=== PATIENT | male | born 1985 | race American Indian/Alaskan Native ===

== ENCOUNTER 2021-08-22 22:22 | Observation (INO) | payer SELFPAY ==
[2021-08-22] MEDS ORDERED: MORPHINE 4 MG/1 ML INJ IV ONE (23:00)
--- NOTE | 2021-08-22 23:13 | Emergency Department Report ---
ED General Adult HPI - General Chief complaint: High BP Stated complaint: HYPERTENSIVE CRISIS Source: EMS Mode of arrival: Wheelchair Limitations: No Limitations - History of Present Illness Initial comments: Patient is a 36-year-old male here with complaint of elevated blood pressures. Patient also reports that he has pain in his joints. Of note patient was unfortunately arrested on Wednesday and has been time in the retirement he states in an uncomfortable position. He was diagnosed with hypertension about 2 days ago and on today had blood pressures that were above 270 systolic. Patient was given doses of amlodipine, clonidine which did not improve his blood pressure so he w as transferred here for further evaluation. 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 He reports that he has had radiation and chemotherapy as well as some lymph nodes removed on the left. Secondary to this patient developed lymphedema of the left arm as well as left breast. He has pain tenderness and redness to the left breast although he denies any recent fevers chills or cough. He does not have any severe headache, no severe chest pain or abdominal pain. - Related Data Allergies Allergy/AdvReac Type Severity Reaction Status Date / Time No Known Allergies Allergy Verified 08/22/21 22:28 ED Review of Systems ROS: Stated complaint: HYPERTENSIVE CRISIS Other details as noted in HPI Constitutional: denies: chills, fever Eyes: denies: eye pain ENT: denies: throat pain Respiratory: denies: cough Cardiovascular: denies: chest pain Endocrine: no symptoms reported Gastrointestinal: denies: abdominal pain, nausea, vomiting Genitourinary: denies: urgency, dysuria Musculoskeletal: back pain Skin: denies: rash Neurological: denies: headache Psychiatric: denies: anxiety, depression Hematological/Lymphatic: denies: easy bleeding ED Past Medical Hx - Past Medical History Previous Medical History?: Yes Hx Hypertension: Yes Hx of Cancer: Yes (Squarmacell neoblastoma) ED Physical Exam - General Limitations: No Limitations General appearance: alert, in no apparent distress - Head Head exam: Present: atraumatic, other (Swelling noted to the face) - Eye Eye exam: Present: periorbital swelling Pupils: Present: normal accommodation - ENT ENT exam: Present: normal exam - Neck Neck exam: Present: normal inspection - Respiratory Respiratory exam: Present: normal lung sounds bilaterally. Absent: respiratory distress - Cardiovascular Cardiovascular Exam: Present: regular rate, normal rhythm. Absent: systolic murmur, diastolic murmur, rubs, gallop - GI/Abdominal GI/Abdominal exam: Present: soft, normal bowel sounds - Rectal Rectal exam: Present: deferred - exam: Present: normal inspection - Extremities Exam Extremities exam: Present: normal inspection - Back Exam Back exam: Present: paraspinal tenderness (At the thoracic spine on the right) - Neurological Exam Neurological exam: Present: alert, oriented X3 - Psychiatric Psychiatric exam: Present: normal affect, normal mood - Skin Skin exam: Present: warm, dry, intact, normal color. Absent: rash ED Course Vital Signs 08/22/21 08/22/21 08/22/21 22:28 22:34 22:40 Temperature 98.9 F Pulse Rate 75 97 H 95 H Respiratory 18 17 14 Rate Blood Pressure 175/125 Blood Pressure 278/177 [Left] O2 Sat by Pulse 100 98 100 Oximetry 08/22/21 08/22/21 08/22/21 22:50 23:00 23:10 Temperature Pulse Rate 109 H Respiratory 20 14 Rate Blood Pressure 177/133 190/115 178/113 Blood Pressure [Left] O2 Sat by Pulse 100 100 100 Oximetry 08/22/21 08/22/21 08/22/21 23:20 23:30 23:35 Temperature Pulse Rate Respiratory 14 12 18 Rate Blood Pressure 168/121 180/109 Blood Pressure [Left] O2 Sat by Pulse 100 98 Oximetry 08/22/21 08/22/21 08/22/21 23:40 23:44 23:50 Temperature Pulse Rate Respiratory 15 14 12 Rate Blood Pressure 188/116 188/116 188/105 Blood Pressure [Left] O2 Sat by Pulse 100 95 100 Oximetry 08/22/21 08/23/21 08/23/21 23:58 00:00 00:16 Temperature Pulse Rate Respiratory 17 12 15 Rate Blood Pressure 188/105 172/111 188/105 Blood Pressure [Left] O2 Sat by Pulse 100 100 100 Oximetry 08/23/21 08/23/21 00:31 00:45 Temperature Pulse Rate Respiratory 14 15 Rate Blood Pressure 170/97 184/109 Blood Pressure [Left] O2 Sat by Pulse 100 99 Oximetry - Reevaluation(s) Reevaluation #1: 08/23/21 02:44 Patient has remained in the 180s systolic. Given patient's report of previous blood pressure in the 270s at this time I will not treat until blood pressure goes over 200. I did obtain CT of the chest to rule out aortic dissection which was negative. ED Medical Decision Making - Lab Data Result diagrams: 08/22/21 23:06 08/22/21 23:06 - EKG Data -: EKG Interpreted by Me EKG shows normal: sinus rhythm - EKG Data 08/22/21 23:12 PVC noted, rate 87 - Radiology Data Radiology results: report reviewed - Medical Decision Making Patient is a 36-year-old male here with complaint of high blood pressure. He also reports some mild right-sided back pain, body aches all over. On exam patient appears possibly fluid overloaded and I am concerned that his elevated blood pressures could have caused damage to his renal function. Patient also has evidence of possible cellulitis to the left breast. Plan for complete evaluation for hypertension including chest x-ray, EKG, basic labs. Will also obtain blood cultures lactic acid and give cefazolin for patient's likely cellulitis. At this time patient's blood pressure is 170 systolic and per reports patient's blood pressure prior to arrival was in the 270s. Given this we will see the trend of blood pressures before giving IV antihypertensive. Critical care attestation.: If time is entered above; I have spent that time in minutes in the direct care of this critically ill patient, excluding procedure time. ED Disposition Clinical Impression: Cellulitis, Hypertensive urgency Disposition: ADMITTED INPATIENT Is pt being admited?: Yes Does the pt Need Aspirin: No Condition: Stable Referrals: PRIMARY CARE, [Primary Care Provider] - 3-5 Days
--- NOTE | 2021-08-22 23:29 | XRay Report ---
CHEST 1 VIEW 08/22/2021 10:14 PM INDICATION / CLINICAL INFORMATION: Elevated blood pressure; eval for widened mediastinum. COMPARISON: None available. FINDINGS: There is mild patient motion. SUPPORT DEVICES: None. HEART / MEDIASTINUM: The heart size and pulmonary vasculature are normal. The aorta is normal in angelo thalia. There is no evidence of mediastinal widening. LUNGS / PLEURA: No significant pulmonary or pleural abnormality. No pneumothorax. ADDITIONAL FINDINGS: No significant additional findings. IMPRESSION: No acute findings. Signer Name: Johann Navarrete MD Signed: 08/22/2021 11:24 PM Workstation Name: [id number]
[2021-08-22 23:37] LABS: Basophils % (Auto) 0.2 % (0.0-1.8); Eosinophils # (Auto) 0.1 K/mm3 (0.0-0.4); Eosinophils % (Auto) 1.1 % (0.0-4.3); Hematocrit 37.7 % (35.5-45.6); Hemoglobin 12.2 gm/dl (11.8-15.2); Lymphocytes # (Auto) 1.1 K/mm3 (1.2-5.4); Lymphocytes % (Auto) 13.3 % (13.4-35.0); Mean Corpuscular HGB Conc 32 % (32-34); Mean Corpuscular Volume 89 fl (84-94); Monocytes # (Auto) 0.6 K/mm3 (0.0-0.8); Monocytes % (Auto) 6.6 % (0.0-7.3); Platelet Count 264 K/mm3 (140-440); Red Blood Count 4.23 M/mm3 (3.65-5.03); Red Cell Distribution Width 14.3 % (13.2-15.2)
[2021-08-22 23:49] LABS: Alanine Aminotransferase 10 units/L (7-56); BUN/Creatinine Ratio 13; Blood Urea Nitrogen 14 mg/dL (9-20); Calcium 9.6 mg/dL (8.4-10.2); Hemolysis Index 0
[2021-08-23] MEDS ORDERED: MORPHINE 4 MG/1 ML INJ IV ONE (01:49)
--- NOTE | 2021-08-23 02:21 | Cat Scan Report ---
CTA CHEST WITH CONTRAST INDICATION / CLINICAL INFORMATION: Hypertensive urgency and back pain. TECHNIQUE: Axial CT images were obtained through the chest after injection of 70 cc Omnipaque 350 IV contrast. 3 plane MIP and/or 3D reconstructions were produced. All CT scans at this location are perf ormed using CT dose reduction for ALARA by means of automated exposure control. The technologist stat es that a significant amount of the contrast extravasated into the right upper extremity. The provide r was notified. COMPARISON: None available. FINDINGS: PULMONARY ARTERIES: Suboptimal opacification especially peripherally. No central filling defects are seen. THORACIC AORTA: No significant abnormality. HEART: No significant abnormality. CORONARY ARTERY CALCIFICATION: None. MEDIASTINUM / HARRISON: No significant abnormality. PLEURA: Minimal left pleural effusion. No pneumothorax. LUNGS: There is mild patchy groundglass parenchymal disease and poorly defined centrilobular nodulari ty in the right upper lobe, and to a lesser extent the left lower lobe and lingula. ADDITIONAL FINDINGS: There is enlargement and edema of the left chest wall including the left breast. UPPER ABDOMEN: There are several small simple cysts in the left kidney. SKELETAL STRUCTURES: No significant osseous abnormality. IMPRESSION: 1. Negative limited examination for acute PTE. No evidence of aortic dissection. 2. Patchy parenchymal disease in both lungs is probably inflammatory. Atypical causes of pneumonia sh ould be considered. Trace left pleural effusion. 3. Generalized left chest wall/breast edema. Signer Name: Johann Navarrete MD Signed: 08/23/2021 2:17 AM Workstation Name: [id number]
--- NOTE | 2021-08-23 02:55 | History and Physical Report ---
History of Present Illness Date of examination: 08/23/21 Date of admission: 08/23/21 Chief complaint: elevated blood pressure History of present illness: This is a 36-year-old male seen in ED at bedside. He came with complaint of elevated blood pressures. Patient also reports that he has pain in his joints. Patient reports he is longterm. Per ED note, patient was arrested on Wednesday and has been time in the longterm. He was diagnosed with hypertension about 2 days ago and on today had blood pressures that were above 270 systolic. Patient was given doses of amlodipine, clonidine which did not improve his blood pressure so he was transferred here for further evaluation. 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 He reports that he has had radiation and chemotherapy as well as some lymph nodes removed on the left. Secondary to this patient developed lymphedema of the left arm as well as left breast. Past History Past Medical History: cancer (nasal cancer) Past Surgical History: No surgical history Social history: smoking, full code. denies: alcohol abuse, prescription drug abuse, IV drug use Family history: no significant family history Medications and Allergies Allergies Allergy/AdvReac Type Severity Reaction Status Date / Time No Known Allergies Allergy Verified 08/22/21 22:28 Review of Systems Ears, nose, mouth and throat: no epistaxis, no bleeding gums Cardiovascular: high blood pressure Respiratory: no congestion Gastrointestinal: no vomiting, no melena Musculoskeletal: no hot joints Integumentary: other (left breast edema- lymphedema) Hematologic/Lymphatic: no easy bruising, no easy bleeding Allergic/Immunologic: no urticaria Exam - Constitutional Vitals: Temp Pulse Resp BP Pulse Ox 98.9 F 109 H 15 157/106 100 08/22/21 22:28 08/22/21 22:50 08/23/21 00:45 08/23/21 02:46 08/23/21 02:46 General appearance: Present: mild distress, obese - EENT Eyes: Present: PERRL ENT: hearing intact, clear oral mucosa - Neck Neck: Present: supple, normal ROM - Respiratory Respiratory effort: normal Respiratory: bilateral: CTA - Cardiovascular Heart Sounds: Present: S1 & S2. Absent: rub, click - Extremities Extremities: pulses symmetrical, No edema Peripheral Pulses: within normal limits - Abdominal General gastrointestinal: Present: soft, non-tender, non-distended, normal bowel sounds Male genitourinary: Present: normal - Integumentary Integumentary: Present: clear, warm, dry - Musculoskeletal Musculoskeletal: strength equal bilaterally, other (edema left breast) - Psychiatric Psychiatric: appropriate mood/affect, intact judgment & insight - Neurologic Neurologic: CNII-XII intact, moves all extremities - Allied Health Allied health notes reviewed: nursing HEART Score - HEART Score Troponin: Troponin T < 0.010 ng/mL (0.00-0.029) 08/22/21 23:06 Results - Labs CBC & Chem 7: 08/22/21 23:06 08/22/21 23:06 Labs: Abnormal lab results 08/22/21 08/22/21 Range/Units 23:06 23:17 Lymph % (Auto) 13.3 L (13.4-35.0) % Lymph # (Auto) 1.1 L (1.2-5.4) K/mm3 Seg Neutrophils % 78.8 H (40.0-70.0) % Magnesium 1.50 L (1.7-2.3) mg/dL Assessment and Plan - Patient Problems (1) Hypertensive urgency Status: Acute Plan to address problem: monitor blood pressure BP has improved-on antihypertensive PRN hydration (2) Cellulitis Status: Acute Plan to address problem: Left breast swelling patient reports he has ongoing lymphedema of left breast patient started on abx (3) Hypomagnesemia Status: Acute Plan to address problem: replace magnesium Monitor electrolyte-replace PRN (4) Pneumonia Status: Acute Plan to address problem: Start empiric abx therapy (5) Obesity (BMI 30-39.9) Status: Acute Plan to address problem: Discussed lifestyle modification Discussed healthy diet and weight management (6) DVT prophylaxis Status: Acute Plan to address problem: Lovenox
[2021-08-23] MEDS ORDERED: MAGNESIUM SULFATE 4 GM/100 ML BAG IV ONE (02:58)
[2021-08-23] MEDS ORDERED: MAGNESIUM HYDROXIDE (MOM) ORAL LIQD UDC PO PRN (02:59)
[2021-08-23] MEDS ORDERED: IBUPROFEN 600 MG TAB PO PRN (02:59)
[2021-08-23] MEDS ORDERED: MORPHINE 2 MG/1 ML INJ IV PRN (02:59)
[2021-08-23] MEDS ORDERED: oxyCODONE /ACETAMINOPHEN 5-325MG TAB PO PRN (02:59)
[2021-08-23] MEDS ORDERED: NALOXONE 0.4 MG/1 ML INJ IV PRN (02:59)
[2021-08-23] MEDS ORDERED: MORPHINE 4 MG/1 ML INJ IV PRN (02:59)
[2021-08-23] MEDS ORDERED: SENNOSIDES 8.6 MG TAB PO PRN (02:59)
[2021-08-23] MEDS ORDERED: ALUM-MAG HYDROXIDE-SIMETHICONE 200-200-20MG/5ML ORAL LIQD 30 ML PO PRN (02:59)
[2021-08-23] MEDS ORDERED: ACETAMINOPHEN 325 MG TAB PO PRN (02:59)
[2021-08-23] MEDS ORDERED: ONDANSETRON 4 MG/2 ML INJ IV PRN (02:59)
[2021-08-23 03:50] VITALS: BP 166/108
[2021-08-23] MEDS ORDERED: cefTRIAXone/NS 2 GM/100 ML 2 GM/100 ML BAG IV SCH (06:00)
[2021-08-23] MEDS ORDERED: AZITHROMYCIN/NS 500 MG/250 ML 500 MG/250 ML BAG IV SCH (08:00)
[2021-08-23] MEDS ORDERED: FAMOTIDINE 20 MG/2 ML INJ IV SCH (10:00)
[2021-08-23] MEDS ORDERED: ENOXAPARIN 40 MG/0.4 ML INJ SUB-Q SCH (10:00)
== END 2021-08-23 04:48 | disposition left against medical advice (07) ==
LOC: ED 22:22 → EEVIPCON 22:22 → 3A 08-23 02:59
PROVIDERS: ADMIT Internal Medicine Geriatric Medicine; ATTEND Internal Medicine Geriatric Medicine
DX: I16.0 Hypertensive urgency (principal); N61.0 Mastitis without abscess; E83.42 Hypomagnesemia; J18.9 Pneumonia, unspecified organism; E66.9 Obesity, unspecified; F17.210 Nicotine dependence, cigarettes, uncomplicated; Z68.39 Body mass index [BMI] 39.0-39.9, adult; Z85.22 Personal history of malignant neoplasm of nasal cavities, middle ear, and accessory sinuses
CPT/HCPCS: 36415; 71045; 71275; 80053; 82140; 83735; 83880; 84484; 85025; 87040; 93005; 96365; 96375; 96376; 99285; G0378; J0690; J2270; J3475; Q9967